=== PATIENT | male | born 1960 | race Caucasian/White ===

== ENCOUNTER → 2019-04-23 14:27 | Outpatient (CLI) | payer MEDICARE, SELFPAY | PROVIDERS: PCP Family Medicine; Referring Provider Family Medicine; Visit Provider Family Medicine | DX: L89.150 Pressure ulcer of sacral region, unstageable (principal); L89.224 Pressure ulcer of left hip, stage 4; L89.313 Pressure ulcer of right buttock, stage 3; G82.21 Paraplegia, complete; E46 Unspecified protein-calorie malnutrition; L89.213 Pressure ulcer of right hip, stage 3 | CPT/HCPCS: 11042; 11043; 11045; 99213 ==